=== PATIENT | female | born 1975 | race African-American/Black ===

== ENCOUNTER 2016-10-19 21:45 | Inpatient (IN) ==
[2016-10-19 22:18] LABS: Apearance,Urine CLEAR (Clear); Bacteria,Urine Moderate /HPF (Few); Bilirubin,Urine Negative (Negative); Blood, Urine Negative (Negative); Glucose,Urine (UA) Negative (Negative); Ketones,Urine Negative (Negative); Nitrite,Urine Negative (Negative); Protein,Urine Negative; RBC,Urine 1 /HPF (0-4); Squamous Epithelial Cell,Urine Occasional /HPF (0-10); Urine Color Straw (Yellow); Urine Specific Gravity 1.002 (1.001-1.035); Urine Urobilinogen < 2.0 EU/DL (0.2-1.0); WBC,Urine 2 /HPF (0-6)
[2016-10-20] MEDS ORDERED: MEPERIDINE 50 MG/1 ML VIAL IV ONE (01:06)
[2016-10-20] MEDS ORDERED: ONDANSETRON 4 MG/2 ML VIAL IV ONE (01:07)
[2016-10-20] MEDS: LACTATED RINGERS 1,000 ML IV SCH ×2 (01:28→07:10)
[2016-10-20] MEDS ORDERED: TERBUTALINE 1 MG/1 ML VIAL SUBCUT ONE (03:03)
[2016-10-20] MEDS ORDERED: BUTORPHANOL 2 MG/ML VIAL IV PRN (03:54)
[2016-10-20] MEDS ORDERED: ONDANSETRON 4 MG/2 ML VIAL IV PRN ×2 (03:54→15:49)
[2016-10-20] MEDS ORDERED: LACTATED RINGERS 1,000 ML IV SCH ×2 (04:00→08:30)
[2016-10-20 04:40] LABS: Basophils % 0.6 % (0.0-0.8); Eosinophils # 0.1 10*3/uL (0.0-0.87); Eosinophils % 1.1 % (0.00-10.9); Hematocrit 33.6 VOL% (35.7-47.0); Hemoglobin 11.4 GM/DL (12.0-16.0); Immature Granulocytes % 0.4 %; Immature Granulocytes Absolute 0.03 #; Lymphocytes # 1.7 10*3/uL (1.4-4.0); Lymphocytes % 23.8 % (21.3-54.2); Mean Corpuscular HGB Conc 33.9 GM/DL (32-36); Mean Corpuscular Hemoglobin 30 PG (27-34); Mean Corpuscular Volume 87.5 FL (87-102); Mean Platelet Volume 11.4 FL (9.6-12.0); Monocytes # 0.6 10*3/uL (0.11-0.8); Monocytes % 8.6 % (1.7-12.7); Neutrophils # 4.7 10*3/uL (1.4-7.4); Neutrophils % 65.5 % (38.7-73.9); Platelet Count 226 T/CUMM (130-400); Red Blood Count 3.84 MC/CUMM (3.8-5.5); Red Cell Distribution Width 13.2 % (9.3-17.3); White Blood Count 7.1 T/CUMM (4-12)
[2016-10-20 05:23] LABS: Alanine Aminotransferase 16 U/L (13-56); Albumin 2.8 G/DL (3.4-5.0); Alkaline Phosphatase 237 U/L (45-117); Aspartate Amino Transferase 17 U/L (0-37); Bilirubin,Total < 0.39 MG/DL (0.2-1.0); Calcium 9.1 MG/DL (8.5-10.1); Total Protein 6.4 G/DL (6.4-8.3)
[2016-10-20 05:24] LABS: Blood Urea Nitrogen 9 MG/DL (7-18); Glucose 73 MG/DL (74-106); Osmolality,Calculated 270.8 MOS/KG (273-304); Potassium 4.2 MMOL/L (3.5-5.1); Sodium 137 MMOL/L (136-145)
[2016-10-20 05:25] LABS: Rubella Antibody IgG 83.9 IU/ML
[2016-10-20] MEDS ORDERED: fentaNYL 2 MCG/ROPIV 0.2% EPID 150 ML EPIDURAL SCH (08:26)
[2016-10-20] MEDS ORDERED: PROMETHAZINE 25 MG/1 ML VIAL IM ONE (08:26)
[2016-10-20] MEDS ORDERED: diphenhydrAMINE 50 MG/1 ML VIAL IV PRN (08:26)
[2016-10-20] MEDS ORDERED: ePHEDrine 50 MG/ML AMP IV PRN (08:26)
[2016-10-20] MEDS ORDERED: hydrOXYzine HCL 25 MG/1 ML VIAL IM PRN (08:26)
[2016-10-20] MEDS ORDERED: FAMOTIDINE 20 MG/2 ML VIAL IV ONE (08:28)
[2016-10-20] MEDS ORDERED: CITRIC ACID/SODIUM CITRATE 30 ML UDCUP PO ONE (08:29)
--- NOTE | 2016-10-20 09:09 | History and Physical Update ---
History and Physical Update - History and Physical H&P was reviewed, the patient examined and there: are no changes in the patients condition since last H&P was completed. - Dictation Physical: refer to scanned H&P - Physical Exam Mental Status: alert and oriented Heart: regular rate and rhythm Lung: clear to auscultation Abdomen: within normal limits Vitals: within normal limits History and Physical Changes: 38+ weeks in labor. No complication. GBS negative. Elderly primigravida
[2016-10-20] MEDS ORDERED: miSOPROStol 200 MCG TABLET PO ONE (13:55)
[2016-10-20] MEDS ORDERED: LIDOCAINE 1% 5 ML VIAL CAUDAL ONE (13:55)
[2016-10-20] MEDS ORDERED: OXYTOCIN/LR 20 UNIT/1,000 ML BAG IV SCH (14:00)
[2016-10-20] MEDS ORDERED: LIDOCAINE 2% 5 ML VIAL CAUDAL ONE (14:13)
[2016-10-20 15:07] LABS: Apearance,Urine CLEAR (Clear); Bilirubin,Urine Negative (Negative); Blood, Urine Negative (Negative); Glucose,Urine (UA) Negative (Negative); Ketones,Urine 5 mg/dL (Negative); Mucus,Urine Occasional /LPF (Occasional); Nitrite,Urine Negative (Negative); Protein,Urine Negative; RBC,Urine <1 /HPF (0-4); Urine Color Yellow (Yellow); Urine Specific Gravity 1.008 (1.001-1.035); WBC,Urine 1 /HPF (0-6)
[2016-10-20] MEDS ORDERED: oxyCODONE/ACETAMINOPHEN 5-325 MG TABLET PO PRN ×2 (15:49)
[2016-10-20] MEDS ORDERED: RHO(D) IMMUNE GLOBULIN 300 MCG SYRINGE IM ONE (15:49)
[2016-10-20] MEDS ORDERED: DIPH/TET/ACEL PERT BOOSTER VACCINE 0.5 ML VIAL IM ONE (15:49)
[2016-10-20] MEDS ORDERED: ACETAMINOPHEN 325 MG TABLET PO PRN (15:49)
[2016-10-20] MEDS ORDERED: HYDROCORTISONE 2.5% RECTAL CREAM 30 GM TUBE TOP PRN (15:49)
[2016-10-20] MEDS ORDERED: WITCH HAZEL PADS 100/JAR TOP PRN (15:49)
[2016-10-20] MEDS ORDERED: BISACODYL 10 MG SUPP RECTAL PRN (15:49)
[2016-10-20] MEDS ORDERED: LANOLIN 50% CREAM 0.3 OZ TUBE TOP PRN (15:49)
[2016-10-20] MEDS ORDERED: OXYTOCIN/LR 20 UNIT/1,000 ML BAG IV ONE (15:49)
[2016-10-20] MEDS ORDERED: MEASLES/MUMPS/RUBELLA VACCINE 0.5 ML VIAL SUBCUT ONE (15:49)
[2016-10-20] MEDS ORDERED: BENZOCAINE 20%/MENTHOL 0.5% SPRAY 56 GM CAN TOP PRN (15:49)
--- NOTE | 2016-10-20 15:52 | Operative Note ---
Date of procedure: 10/20/16 Pre-op diagnosis: 38+ weeks in active labor Post-op diagnosis: same Procedure: Kiwi Vacuum-assisted vaginal delivery Pt progressed to C&P with labor epidural and Pitocin augmentation. Kiwi vacuum applied to vtx p discussion of BRCA . Indication: Prolonged bradycardia with and after pushing. Baby delivered without difficulty. Nuchal cord was easily reduced. Baby was bulb suctioned on perineum and placed on mother's belly. Cord was doubly clamped and cut once the cord stopped pulsating. Placenta delivered intact. Right distal vaginal laceration repaired with 2-0 chromic with good approximation and hemostasis. Superficial bilateral medial labial lacerations were noted to be hemostatic. EBL 300cc. Pt stable. Baby stable Anesthesia: epidural Surgeon / Physician: Ivett Graham Estimated blood loss: other (300cc) Specimens: other (cord blood to lab; placenta to path) Condition: stable Disposition: no change Results - Labs CBC & BMP: 10/20/16 04:25 10/20/16 04:25 Discharge Plan - Discharge Medications No Action Multivitamin () [ Vitamin] 1 tablet PO DAILY - Follow Up or Referral - Forms/Instructions
--- NOTE | 2016-10-20 19:20 | Anesthesia Post-Op ---
Anesthesia Post OP - Post Ansesthetic Evaluation Patient seen in post op: Yes Resp: within normal limits CV: within normal limits Mental: within normal limits Temp: within normal limits [id number]: within normal limits Nausea and Vomiting: within normal limits Pain: within normal limits
[2016-10-21 06:13] LABS: Basophils # 0.1 10*3/uL (0.0-0.2); Basophils % 0.4 % (0.0-0.8); Eosinophils % 0.2 % (0.00-10.9); Hematocrit 29.9 VOL% (35.7-47.0); Hemoglobin 10.5 GM/DL (12.0-16.0); Immature Granulocytes % 0.4 %; Immature Granulocytes Absolute 0.05 #; Lymphocytes # 1.7 10*3/uL (1.4-4.0); Lymphocytes % 13.2 % (21.3-54.2); Mean Corpuscular HGB Conc 35.1 GM/DL (32-36); Mean Corpuscular Hemoglobin 30 PG (27-34); Mean Corpuscular Volume 86.4 FL (87-102); Mean Platelet Volume 11.7 FL (9.6-12.0); Monocytes # 0.9 10*3/uL (0.11-0.8); Monocytes % 6.6 % (1.7-12.7); Neutrophils # 10.1 10*3/uL (1.4-7.4); Neutrophils % 79.2 % (38.7-73.9); Platelet Count 201 T/CUMM (130-400); Red Blood Count 3.46 MC/CUMM (3.8-5.5); Red Cell Distribution Width 12.9 % (9.3-17.3); White Blood Count 12.8 T/CUMM (4-12)
[2016-10-21] MEDS: DOCUSATE SODIUM 100 MG CAPSULE PO SCH ×2 (09:11→20:05)
[2016-10-21] MEDS: IBUPROFEN 800 MG TABLET PO PRN ×2 (09:15→22:10)
[2016-10-22 07:21] VITALS: BP 114/71
[2016-10-22] MEDS: DOCUSATE SODIUM 100 MG CAPSULE PO SCH (08:39)
--- NOTE | 2016-10-22 14:16 | Pathology Report from [facility] ---
[facility] ACCESSION # : [id number] PATIENT NAME : Belinda Paul ORDERING DR : SELENA SOUZA DO CLINICAL HX: IUP at 38.4 weeks POST-OP DX: male Apgars 9/ SPECIMEN INFO: Placenta GROSS DESCRIPTION: Received fresh labeled with the patients name and consists of a 403 gram placenta which measures 17.5 x 12.5 x 2.5 cm. membranes are pink-rogers and translucent. The umbilical cord measures 34.0 cm, contains three vessels and is eccentrically inserted. The surface is blue-rg and intact. The maternal surface displays intact red-brown cotyledons with no abnormalities appreciated upon sectioning. Sections submitted: A membranes and cord, B and maternal surfaces. DIAGNOSIS FOR BELINDA PAUL: PLACENTA, MEMBRANES, UMBILICAL CORD: Focal placental infarction with dystrophic calcification, moderate intravillous blood. Tri-vessel umbilical cord, eccentrically inserted. Membranes with focal chronic inflammation and attached blood. COLLECTED DATE: 10/21/2016 [facility] REPORT DATE: 10/22/2016 ELECTRONICALLY SIGNED BY: Chula Gloria M.D. 10/22/2016 - 9:38:16 YISEL
== END 2016-10-22 12:00 | disposition home or self-care (01) | DRG 775 ==
LOC: N.LDOUT 21:45 → EDSTATUS 21:45 → N.LD 21:45 → N.SDSINP 23:12 → N.LD 23:12 → N.OB 10-20 17:29
PROVIDERS: ADMIT Obstetrics & Gynecology; ATTEND Obstetrics & Gynecology